=== PATIENT | male | born 1950 | race Caucasian/White ===

== ENCOUNTER 2017-02-14 05:02 | Inpatient (IN) | payer MEDICARE, OTHER ==
[~2017-02-14] VITALS: Ht 185.4 cm; Wt 93.0 kg
[2017-02-14 05:42] LABS: Basophils # (auto) 0 uL; Basophils % (auto) 0.5 % (0.0-2.0); Eosinophils # (auto) 0.2 uL; Eosinophils % (auto) 2.2 % (0.0-7.0); Hematocrit 48.7 % (41.0-53.0); Hemoglobin 16.1 g/dL (13.5-17.5); Lymphocytes # (auto) 1.9 uL; Lymphocytes % (auto) 19.7 % (10.0-50.0); Mean Corpuscular Hemoglobin 30.4 pg (28.0-32.0); Mean Corpuscular Hgb Conc. 33.2 g/dL (32.0-36.0); Mean Corpuscular Volume 91.7 fL (80.0-100.0); Mean Platelet Volume 9.4 fL (7.4-10.4); Monocytes # (auto) 0.7 uL; Monocytes % (auto) 6.7 % (0.0-12.0); Neutrophils % (auto) 70.9 % (37.0-80.0); Platelet Count (auto) 224 10^3/uL (140-450); White Blood Cell 9.8 10^3/uL (4.4-10.8)
[2017-02-14 05:57] LABS: INR 1.11 (0.9-1.15); Prothrombin Time 11.4 sec (9.37-12.3)
[2017-02-14] MEDS ORDERED: cloNIDine HCL 0.1 MG TAB PO ONE (06:00)
[2017-02-14] MEDS ORDERED: NITROGLYCERIN 0.4 MG SL TAB SL ONE (06:00)
[2017-02-14 06:01] LABS: BUN/Creatinine Ratio 19.3; Calcium 8.5 mg/dL (8.5-10.1); Potassium 4.3 mmol/L (3.5-5.1)
[2017-02-14 06:05] LABS: Bilirubin, Total 0.9 mg/dL (0.2-1.0); Total Protein 7.4 g/dL (6.4-8.2)
[2017-02-14 06:19] LABS: B-Type Natriuretic Peptide 1524.07 pg/mL (0-100)
[2017-02-14] MEDS ORDERED: SODIUM CHLORIDE 0.9% 1,000 ML IV ONE (07:27)
[2017-02-14] MEDS ORDERED: FUROSEMIDE 20 MG/2 ML VIAL IV ONE (07:30)
[2017-02-14] MEDS ORDERED: MORPHINE SULFATE 4 MG/ML SYRG IV ONE (07:30)
[2017-02-14] MEDS ORDERED: HYDROcodone-ACET 5/325MG TAB PO PRN (11:45)
[2017-02-14] MEDS ORDERED: ACETAMINOPHEN 500 MG TAB PO PRN (11:45)
[2017-02-14] MEDS ORDERED: MORPHINE SULF INJ 2 MG/ML SYRINGE 1ML IV PRN ×2 (11:45)
[2017-02-14] MEDS ORDERED: DEXTROSE (50%) 50ML SYRG IV PRN (11:45)
[2017-02-14] MEDS ORDERED: PROMETHAZINE HCL 25 MG/ML 1ML IV PRN (11:45)
[2017-02-14] MEDS ORDERED: LORazepam 0.5 MG TAB PO PRN (11:45)
[2017-02-14] MEDS ORDERED: TEMAZEPAM 15 MG CAP PO PRN (11:45)
[2017-02-14] MEDS ORDERED: LACTULOSE 20Gm/30ML SOLN PO PRN (11:45)
[2017-02-14] MEDS ORDERED: NITROGLYCERIN 0.4 MG SL TAB SL PRN (11:45)
[2017-02-14] MEDS ORDERED: POTASSIUM CHL 20 Meq TABLET PO ONE (12:00)
[2017-02-14] MEDS ORDERED: CARVEDILOL 3.125 MG TAB PO ONE (12:00)
[2017-02-14] MEDS ORDERED: ASPirin 81 mg TAB PO ONE (12:00)
[2017-02-14] MEDS ORDERED: ENALAPRIL MALEATE 2.5 MG TAB PO ONE (12:00)
[2017-02-14] MEDS: NITROGLYCERIN 0.2MG/HR TOPICAL PATCH TD SCH (12:28)
[2017-02-14] MEDS ORDERED: ASPI81CH43 PO (14:30)
[2017-02-14] MEDS ORDERED: LISI10TA6 PO (14:30)
[2017-02-14] MEDS ORDERED: BEN10T PO (14:30)
[2017-02-14 14:35] VITALS: BP 132/86
[2017-02-14] MEDS: SODIUM CHLOR 0.9% PF (SALINE LOCK) 10ML VIAL IV SCH ×2 (14:51→22:02)
[2017-02-14 16:17] LABS: Urine Bilirubin Negative (Negative); Urine Blood Negative /uL (Negative); Urine Color Yellow (Yellow); Urine Glucose Normal (Normal); Urine Ketone Negative (Negative); Urine Nitrite Negative (Negative); Urine RBC 1 /hpf (0 - 3); Urine Squamous Epithelial Cell FEW /hpf (<5); Urine Urobilinogen Normal (Negative)
[2017-02-14 17:00] VITALS: BP 136/88
[2017-02-14] MEDS: ACCU-CHEK COMFORT CURVE STRIP VI SCH ×2 (17:00→22:00)
[2017-02-14] MEDS: InsuLIN REG 1unit/0.01ml Soln (100units/ml) SC SCH ×2 (17:00→22:00)
[2017-02-14 20:00] VITALS: BP 132/87
[2017-02-14 22:00] VITALS: BP 132/87
[2017-02-14] MEDS: CARVEDILOL 3.125 MG TAB PO SCH (22:01)
[2017-02-15] VITALS (7 sets, daily range): BP systolic 124–164; BP diastolic 79–116
[2017-02-15] MEDS ORDERED: cloNIDine HCL 0.1 MG TAB PO PRN (04:15)
[2017-02-15] MEDS: SODIUM CHLOR 0.9% PF (SALINE LOCK) 10ML VIAL IV SCH ×3 (05:53→21:37)
[2017-02-15 05:56] LABS: Basophils # (auto) 0 uL; Basophils % (auto) 0.5 % (0.0-2.0); Eosinophils # (auto) 0.3 uL; Eosinophils % (auto) 3.3 % (0.0-7.0); Hematocrit 47.9 % (41.0-53.0); Hemoglobin 15.9 g/dL (13.5-17.5); Lymphocytes # (auto) 2.2 uL; Lymphocytes % (auto) 21.1 % (10.0-50.0); Mean Corpuscular Hemoglobin 30.3 pg (28.0-32.0); Mean Corpuscular Hgb Conc. 33.2 g/dL (32.0-36.0); Mean Corpuscular Volume 91.2 fL (80.0-100.0); Mean Platelet Volume 9.4 fL (7.4-10.4); Monocytes # (auto) 0.7 uL; Monocytes % (auto) 6.4 % (0.0-12.0); Neutrophils % (auto) 68.7 % (37.0-80.0); Platelet Count (auto) 208 10^3/uL (140-450); Red Cell Distribution Width 13.9 % (11.6-16.0); White Blood Cell 10.3 10^3/uL (4.4-10.8)
[2017-02-15 06:37] LABS: Albumin 3.6 g/dL (3.4-5.0); BUN/Creatinine Ratio 20.3; Bilirubin, Total 1.1 mg/dL (0.2-1.0); Potassium 4.6 mmol/L (3.5-5.1); Total Protein 6.7 g/dL (6.4-8.2)
[2017-02-15] MEDS: InsuLIN REG 1unit/0.01ml Soln (100units/ml) SC SCH ×4 (06:40→22:23)
[2017-02-15] MEDS: ACCU-CHEK COMFORT CURVE STRIP VI SCH ×4 (06:40→22:07)
[2017-02-15 06:41] LABS: B-Type Natriuretic Peptide 1218.67 pg/mL (0-100)
[2017-02-15] MEDS ORDERED: ENOXAPARIN SOD 40 MG/0.4 ML SYRINGE SC SCH (10:00)
[2017-02-15] MEDS: ASPirin 81 mg TAB PO SCH (10:00)
[2017-02-15] MEDS: FUROSEMIDE 40 MG/4 ML VIAL IV SCH (11:16)
[2017-02-15] MEDS: ENALAPRIL MALEATE 2.5 MG TAB PO SCH (11:17)
[2017-02-15] MEDS: POTASSIUM CHL 20 Meq TABLET PO SCH (11:17)
[2017-02-15] MEDS: CARVEDILOL 3.125 MG TAB PO SCH ×2 (11:17→21:37)
[2017-02-15] MEDS: NITROGLYCERIN 0.2MG/HR TOPICAL PATCH TD SCH (11:18)
[2017-02-16 04:47] VITALS: BP 150/88
[2017-02-16] MEDS: SODIUM CHLOR 0.9% PF (SALINE LOCK) 10ML VIAL IV SCH ×2 (06:32→14:00)
[2017-02-16] MEDS: ACCU-CHEK COMFORT CURVE STRIP VI SCH ×2 (06:49→11:30)
[2017-02-16] MEDS: InsuLIN REG 1unit/0.01ml Soln (100units/ml) SC SCH ×2 (06:50→11:30)
[2017-02-16 08:00] VITALS: BP 122/72
[2017-02-16] MEDS: POTASSIUM CHL 20 Meq TABLET PO SCH (10:11)
[2017-02-16] MEDS: ASPirin 81 mg TAB PO SCH (10:12)
[2017-02-16] MEDS: ENALAPRIL MALEATE 2.5 MG TAB PO SCH (10:13)
[2017-02-16] MEDS: FUROSEMIDE 40 MG/4 ML VIAL IV SCH (10:13)
[2017-02-16] MEDS: CARVEDILOL 3.125 MG TAB PO SCH (10:14)
[2017-02-16] MEDS: NITROGLYCERIN 0.2MG/HR TOPICAL PATCH TD SCH (10:14)
[2017-02-16 10:49] LABS: BUN/Creatinine Ratio 20.9; Calcium 8.4 mg/dL (8.5-10.1); Potassium 4.4 mmol/L (3.5-5.1)
[2017-02-16 11:00] LABS: B-Type Natriuretic Peptide 690.37 pg/mL (0-100); Temperature: 22.2 C (20.0-25.0)
[2017-02-16 13:00] VITALS: BP 123/70
[2017-02-16 14:09] VITALS: BP 123/76
[2017-02-16 17:18] VITALS: BP 117/69
== END 2017-02-16 17:00 | disposition home or self-care (01) | DRG 291 ==
LOC: ER 05:04 → TELE 05:05 → TELE-E-ADS 14:25 → TELE-WESTW 16:03
PROVIDERS: ADMIT Internal Medicine; ATTEND Internal Medicine
DX: I13.0 Hypertensive heart and chronic kidney disease with heart failure and stage 1 through stage 4 chronic kidney disease, or unspecified chronic kidney disease (principal); I50.43 Acute on chronic combined systolic (congestive) and diastolic (congestive) heart failure; N17.9 Acute kidney failure, unspecified; I42.9 Cardiomyopathy, unspecified; M10.9 Gout, unspecified; E11.21 Type 2 diabetes mellitus with diabetic nephropathy; N18.9 Chronic kidney disease, unspecified; E11.22 Type 2 diabetes mellitus with diabetic chronic kidney disease; I49.3 Ventricular premature depolarization; F15.90 Other stimulant use, unspecified, uncomplicated; Z79.82 Long term (current) use of aspirin; Z83.3 Family history of diabetes mellitus; Z80.9 Family history of malignant neoplasm, unspecified; Z79.899 Other long term (current) drug therapy
CPT/HCPCS: 36415; 71010; 71020; 80048; 80053; 80061; 81001; 82550; 82962; 83036; 83735; 83880; 84443; 84484; 85025; 85379; 85610; 85652; 85730; 86141; 93005; 93306; 94761; 96374; 96375; G0434; J1815